=== PATIENT | female | born 1930 | race Caucasian/White ===

== ENCOUNTER → 2018-05-09 | Outpatient (CLI) | payer MEDICARE ==
[2018-01-21 11:00] VITALS: BP 127/70
[~2018-05-09] MED LIST: ASPI325T8 PO; DONE10TA61 PO; HYDR-3164 PO; LISI1TAB5 PO; POLY17PO29 PO; SERT25TA PO; ZOLP10TA4 PO
[2018-05-09 08:01] LABS: CALCIUM 8.7 mg/dL (8.5-10.1); CREATININE 0.8 mg/dL (0.6-1.0); POTASSIUM 3.7 mmol/L (3.5-5.1)
== END | disposition home or self-care (01) ==
LOC: SPEC 07:22
PROVIDERS: ATTEND Family Medicine
DX: Z79.899 Other long term (current) drug therapy (principal)
CPT/HCPCS: 36415; 80048

== ENCOUNTER → 2019-06-23 | Outpatient (CLI) | payer MEDICARE ==
[2018-01-21 11:00] VITALS: BP 127/70
[~2019-06-23] MED LIST changes: +LISI1TAB19 PO; -LISI1TAB5 PO
[2019-06-23 16:34] LABS: BILIRUBIN,URINE NEGATIVE (NEG); CLARITY,URINE CLOUDY; COLOR,URINE YELLOW; NITRITE,URINE POSITIVE (NEG); PH,URINE 5.5; PROTEIN,URINE NEGATIVE (NEG-TRACE); UROBILINOGEN,URINE 0.2 mg/dL (0.2 mg/dL)
[2019-06-23 16:54] LABS: BACTERIA,URINE MANY /HPF (0-FEW); RBC,URINE OCC /HPF (0-2); SQUAMOUS EPITHELIAL CELL,UR FEW /LPF
== END | disposition home or self-care (01) ==
LOC: SPEC 15:36
PROVIDERS: ATTEND Family Medicine
DX: N30.20 Other chronic cystitis without hematuria (principal)
CPT/HCPCS: 81001; 87086; 87186